=== PATIENT | female | born 1995 | race Caucasian/White ===

== ENCOUNTER 2025-01-09 23:15 | Emergency (ER) | payer OTHER, SELFPAY ==
--- OUTSIDE RECORDS SUMMARY | 2023-09-13 04:15 | XMS_ITS ---
Author Organization [facility] in [place] Address [address] [place] [address] Care Team Providers Care Quick Technician Name Role Phone Eliceo Goodrich CNP Primary Care Provider Kayla Quinn Unavailable [phone] REASON FOR VISIT KS-SECURITY MONITOR pruritic rash REF: Eliceo Goodrich Encounters Encounter Location Date Provider Diagnosis [facility] [address] [place] [address] 09/13/2023 Kayla Hedrick Other urticaria L50. 8 and Postinflammatory hyperpigmentation L81.0 Assessments Encounter Date Diagnosis (ICD Code) Assessment Notes Treatment Notes Treatment Clinical Notes Section Notes 09/13/2023 Other urticaria (ICD-10 - L50.8) 09/13/2023 Postinflammatory hyperpigmentation (ICD-10 - L81.0) Plan Of Treatment No Information Progress Notes * Amanda RADER DDOB:[birth year] (29 yo F)Acc No.[id number]:09/13/2023 UNLOCKED PROGRESS NOTE Progress Note Patient: Jose BASILIOAmanda Kelly Provider: Gladys Hedrick APRN :1995 A ge:28 Y S ex:Female Date:09/13/2023 [facility], [id number] Pcp:Eliceo Goodrich CNP Check In:08:19 AM ESTCheck O ut:09:02 AM EST Subjective: * Chief Complaints: * 1 . KS-SECURITY MONITOR pruritic rash REF: Eliceo Kp. * Medical History: Objective: * Vitals: Assessment: * Assessment: 1. O ther urticaria - L50.8 2 . P ostinflammatory hyperpigmentation - L81.0? Plan: * Treatment: * * Electronic signature of Chelo Hedrick NP on 01/09/2025 at 11:28 PM EDT Sign off status: Pending Visit Status: C HK (Check Out) * Provider: Gladys Hedrick APRN Date: 0 09/13/2023 Generated for Khloe washington/Karolina/Nathan on: 0 01/09/2025 11:28 PM EDT
--- OUTSIDE RECORDS SUMMARY | 2023-10-05 09:00 | XMS_ITS ---
Author Organization [facility] in [place] Address [address] [place] [address] Care Team Providers Care Manager Multicultural Name Role Phone Eliceo Goodrich CNP Primary Care Provider Kayla Quinn Unavailable [phone] REASON FOR VISIT KS-3 week Urticaria follow up Encounters Encounter Location Date Provider Diagnosis [facility] [address] [place] [address] 10/05/2023 Kayla Hedrick Other urticaria L50. 8 and Postinflammatory hyperpigmentation L81.0 Assessments Encounter Date Diagnosis (ICD Code) Assessment Notes Treatment Notes Treatment Clinical Notes Section Notes 10/05/2023 Other urticaria (ICD-10 - L50.8) 10/05/2023 Postinflammatory hyperpigmentation (ICD-10 - L81.0) Plan Of Treatment No Information Progress Notes * Amanda RADER DDOB:[birth year] (29 yo F)Acc No.[id number]:10/05/2023 UNLOCKED PROGRESS NOTE Established Patient: Jose Amanda DAVIDSON Provider: Gladys Hedrick APRN :1995 A ge:28 Y S ex:Female Date:10/05/2023 [facility], [id number] Pcp:Eliceo Goodrich CNP Check In:12:56 PM ESTCheck O ut:01:02 PM EST Subjective: * Chief Complaints: * 1 . KS-3 week Urticaria follow up. * Medical History: Objective: * Vitals: Assessment: * Assessment: 1. O ther urticaria - L50.8 2 . P ostinflammatory hyperpigmentation - L81.0? Plan: * Treatment: * * Electronic signature of Chelo Hedrick NP on 01/09/2025 at 11:28 PM EDT Sign off status: Pending Visit Status: Dinora MAHARAJ (Check Out) * Provider: Gladys Hedrick APRN Date: 10/05/2023 Generated for Khloe washington/Karolina/Nathan on: 01/09/2025 11:28 PM EDT
--- OUTSIDE RECORDS SUMMARY | 2024-10-07 09:00 | XMS_ITS ---
Author Organization [facility] in [place] Address [address] [place] [address] Care Team Providers Care Vice President Planning Name Role Phone Eliceo Goodrich CNP Primary Care Provider Kayla Quinn [phone] REASON FOR VISIT cs - 1 year urticaria Encounters Encounter Location Date Provider Diagnosis [facility] [address] [facility] [place] [address] 10/07/2024 Kayla Hedrick Plan Of Treatment No Information Progress Notes * Amanda RADER DDOB:[birth year] (29 yo F)Acc No.[id number]:10/07/2024 UNLOCKED PROGRESS NOTE Established Patient: Jose DAVIDSON Raeanna Cecy Provider: Gladys Hedrick APRN :1995 A ge:29 Y S ex:Female Date:10/07/2024 Address:[facility] [address], [id number] Pcp:Eliceo Goodrich CNP Subjective: * Chief Complaints: * 1 . Cs - 1 year urticaria. * Medical History: Objective: * Vitals: Assessment: Plan: * Treatment: * * Electronic signature of Chelo Hedrick NP on 01/09/2025 at 11:28 PM EDT Sign off status: Pending Visit Status: C ANCPHONE (Cancelled Phone) * Provider: Gladys Hedrick APRN Date: 0 10/07/2024 Generated for Khloe washington/Karolina/Adamitting on: 0 01/09/2025 11:28 PM EDT
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
[2025-01-09 23:17] VITALS: BP 175/113; PULSE 108; TEMP 37.1; O2SAT 99; BMI 31.0
--- OUTSIDE RECORDS SUMMARY | 2025-01-09 23:29 | XMS_ITS | Encounter Summary ---
Author Organization [employer] Address [id number] [address] [place] [address] Care Team Providers Care Snow Remover Name Role Phone Eliceo Goodrich Nelsy PETERSON-SHEARING MACHINE FEEDER Primary Care Provider + Encounter Details Date Type Department Care Team (Late st Contact Info) Description 12/21/2021 Telephone [facility] [address] [facility] [place] [address] Dorota Alanis DO [address] [place] [address] Social History Tobacco Use Types Packs/Day Years Used Date Smoking Tobacco: Every Day Cigarettes Vaping/E-cigarettes Smokeless Tobacco: Never Alcohol Use Standard Drinks/Week Comments Not Currently 0 (1 standard drink = 0.6 oz pur e alcohol) Childcare Answer Date Recorded Childcare Unknown 12/19/2018 Employment Answer Date Recorded Employment Unknown 12/19/2018 Purpose - Life Answer Date Recorded Purpose and direction in life Unknown Comments No Sex and Gender Information Value Date Recorded Sex Assigned at Female 01/02/2025 10:00 AM EDT Legal Sex Female 11:51 AM EDT Gender Identity Female 01/02/2025 10:00 AM EDT Sexual Orientation Straight 06/23/2024 10 :28 PM EST documented as of this encounter Miscellaneous Notes * Telephone Encounter - Montse Gutierrez - 12/21/2021 9:52 AM EDT Patient called in stating that she is having brown bleeding while on her depo. She is aware that bleeding is a side effect but she is just concerned because she states she has this happen frequently when she receives the shot and wanted to know if it is a cause for concern. Please advise. Thanks. * Telephone Encounter - Dorota Alanis DO - 12/21/2021 9:52 AM EDT Please let patient know that irregular bleeding and occasional spotting, even brownish colored spotting is perfectly normal and to be expected while taking Depo-Provera. Thank you. * Telephone Encounter - Luz Hudson CMA - 12/21/2021 9:52 AM EDT Called and spoke to pt regarding bleeding documented in this encounter Plan of Treatment Upcoming Encounters Date Type Department Care Team ([facility] st Contact Info) Description 02/13/2025 10:30 AM EDT Nurse Injection [facility] [address] [place] [address], [place] [address] Nicolette Johns APRN-CNM [address] [place] [address] 03/20/2025 10:30 AM EDT Nurse Injection [facility] [address] [place] [address] [address] [place] [address] Nicolette Johns APRN-CNM [address] [place] [address] 07/17/2025 10:30 AM EST Nurse Injection [facility] [address] [place] [address], [place] [phone] Nicolette Johns, JIGGER MACHINE OPERATOR-CNM [address] [address] documented as of this encounter Visit Diagnoses Not on filedocumented in this encounter Additional Health Concerns Infection Onset Date Last Indicated Resolved Time COVID-19 Rule-Out 03/13/2023 03/13/2023 03/13/2023 7:38 PM EDT COVID-19 Rule-Out 02/01/2024 02/01/2024 02/02/2024 12:04 AM EDT documented as of this encounter Care Teams Snow Remover Relationship Specialty Start Date End Date Eliceo Goodrich, JIGGER MACHINE OPERATOR-SHEARING MACHINE FEEDER [address] [address] PCP - General Nurse Practitioner 04/04/23 documented as of this encounter
--- OUTSIDE RECORDS SUMMARY | 2025-01-09 23:29 | XMS_ITS | Patient Health Record ---
Author Organization [facility] Address [address] [place] [address] Care Team Providers Care Cleaner Assistant Name Role Phone Eliceo Goodrich CNP Primary Care Provider Kayla Quinn Unavailable [phone] Allergies No Known Allergies Reason For Referral No Information Medications Medication SIG (Take, Route, Frequency, Duration) Notes Start Date End Date Status ibuprofen Active Social History Tobacco Use: Social History Observation Description Date Details (start date - stop date) Current Smoker NA - NA Tobacco Use/Smoking Question Answer Notes Patient is a current every day smoker Plan Of Treatment Pending Test Test Name Order Date BMP w/GFR 10/03/2022 MAGNESIUM 10/03/2022 APTT 10/03/2022 CHLAMYDIA/GC BY PCR 10/03/2022 LIP 06/07/2022 CBC AND AUTO DIFF * 06/07/2022 CBC AND AUTO DIFF * 10/03/2022 PROTIME 10/03/2022 COMPREHENSIVE METABOLIC PANEL 06/07/2022 LIVER PANEL 10/03/2022 TROPONIN-T 10/03/2022 URINALYSIS 10/03/2022 SERUM 10/03/2022 MRI Knee w/o Contrast Right 08/25/2021 LACTATE 10/03/2022 VAGINITIS PANEL PCR 10/03/2022 Insurance Providers Payer Name Payer Address Payer Phone Subscriber Number Group Number Insured Name Patient Relationship to Insured Coverage Start Date Coverage End Date [employer] [place] [employer] [address] [place] [phone] [id number] Amanda Rader Self - patient is the insured Medical (General) History Surgical History Surgery Date(Month/Year)
--- OUTSIDE RECORDS SUMMARY | 2025-01-09 23:29 | XMS_ITS | Encounter Summary ---
Author Organization [employer] Address [id number] [address] [place] [address] Care Team Providers Care Hunter Name Role Phone Eliceo Goodrich Nelsy PETERSON-PAPER CUP HANDLE MACHINE OPERATOR Primary Care Provider + Encounter Details Date Type Department Care Team (Latest Contact Info) Description 01/02/2025 Travel Social History Tobacco Use Types Packs/Day Years Used Date Smoking Tobacco: Former Cigarettes Smokeless Tobacco: Never Comments:Qit smoking and vap ing the end of August 2024. Alcohol Use Standard Drinks/Week Comments Not Currently 0 (1 standard drink = 0.6 oz pur e alcohol) occasional C Utilities Answer Date Recorded In the past 12 months has e electric, gas, oil, or water company threatened to shut off services in your [...] PM EST documented as of this encounter Plan of Treatment Upcoming Encounters Date Type Department Care Team ([facility] st Contact Info) Description 02/13/2025 10:30 AM EDT Nurse Injection [facility] [address] [place] [address] Nicolette Johns APRN-CNM [address] [place] [address] 03/20/2025 10:30 AM EDT Nurse Injection [facility] [address] [facility] [address] [place] [address] Nicolette Johns BIODIESEL DIVISION MANAGER-CNM [address] [place] [address] 07/17/2025 10:30 AM EST Nurse Injection [facility] [address] [facility] [address] [place] [address] Nicolette Johns BIODIESEL DIVISION MANAGER-CNM [address] [place] [address] documented as of this encounter Goals Goal Patient Goal Type Associated Problems Recent Progress Patient-Stated? Author Return home General Yes Kailee Martinez LSW Note: Evaluation of progress towards goal: In progress: Return home. Hopes today. Await stress test results. documented as of this encounter Visit Diagnoses Not on filedocumented in this encounter Additional Health Concerns Assessment Noted Time PHQ-9 Depression Total Score: 13 025 1:32 PM EDT A Body Mass Index follow-up plan has been documented for the patient 01/02/2025 9:52 AM EDT documented as of this encounter Care Teams Hunter Relationship Specialty Start Date End Date Eliceo Goodrich, BIODIESEL DIVISION MANAGER-PAPER CUP HANDLE MACHINE OPERATOR [address] [place] [address] PCP - General Nurse Practitioner 04/04/23 documented as of this encounter
--- OUTSIDE RECORDS SUMMARY | 2025-01-09 23:29 | XMS_ITS | Encounter Summary ---
Author Organization [employer] Address [facility] [place]-[id number] [address] [place] [address] Care Team Providers Care Web Worker Name Role Phone Eliceo Goodrich APRN-CLEAN UP PERSON Primary Care Provider + Reason for Visit * Reason Onset Date Comments Phone Encounter 02/28/2023 Labs Only 02/28/2023 Encounter Details Date Type Department Care Team (Late st Contact Info) Description 02/28/2023 Telephone [facility] Certified Nurse Daycare Assistant - [place] [id number] [address] Kathy Singh CMA Phone Encounter; Labs Only Social History Tobacco Use Types Packs/Day Years Used Date Smoking Tobacco: Every Day Cigarettes Smokeless Tobacco: Never Alcohol Use Standard Drinks/Week Comments Not Currently 0 (1 standard drink = 0.6 oz pur e alcohol) ONCE A MONTH Childcare Answer Date Recorded Childcare Unknown 12/19/2018 [...] encounter Miscellaneous Notes * Telephone Encounter - Kathy Singh CMA - 02/28/2023 11:56 AM EDT Pt called and would like a lab order placed for a UA. She feels like she has a UTI. Frequent urination and burning. * Telephone Encounter - DESHAWN Singleton - 02/28/2023 11:56 AM EDT Went to ER documented in this encounter Plan of Treatment Upcoming Encounters Date Type Department Care Team ([facility] st Contact Info) Description 02/13/2025 10:30 AM EDT Nurse Injection [facility] [address] [facility] 0[address] [place] [address] Nicolette Johns APRN-CNM [address] [place] [address] 03/20/2025 10:30 AM EDT Nurse Injection [facility] [address] [facility] 020 [place] [address] Nicolette Johns APRN-CNM [address] [facility] [address] [place] [address] 07/17/2025 10:30 AM EST Nurse Injection [facility] [address] [facility] 020 [place] [address] Nicolette Johns APRN-CNM [address] [place] [address] documented as of this encounter Visit Diagnoses Not on filedocumented in this encounter Additional Health Concerns Infection Onset Date Last Indicated Resolved Time COVID-19 Rule-Out 03/13/2023 03/13/2023 03/13/2023 7:38 PM EDT COVID-19 Rule-Out 02/01/2024 02/01/2024 02/02/2024 12:04 AM EDT Assessment Noted Time A Body Mass Index follow-up plan has been documented for the patient 08/29/2022 1:08 PM EST documented as of this encounter Care Teams Web Worker Relationship Specialty Start Date End Date Eliceo Goodrich, DEMONSTRATOR SALES-CLEAN UP PERSON [address] [place] [address] PCP - General Nurse Practitioner 04/04/23 documented as of this encounter
--- OUTSIDE RECORDS SUMMARY | 2025-01-09 23:29 | XMS_ITS | Encounter Summary ---
Author Organization [facility] [employer] Address [id number] [address] [place] [address] Care Team Providers Care Tool Trouble Shooter Name Role Phone Eliceo Goodrich Nelsy BUSTILLON-MEDICINAL CHEMIST Primary Care Provider + Encounter Details Date Type Department Care Team (Late st Contact Info) Description 12/26/2023 Orders Only [facility] [address] [place] [phone] Ashley Zarate, SAP PAYROLL CONSULTANT Pruritic rash; Allergic symptoms, subsequent encounter Social History Tobacco Use Types Packs/Day Years Used Date Smoking Tobacco: Former Cigarettes Smokeless Tobacco: Never Alcohol Use Standard Drinks/Week Comments Not Currently 0 (1 standard drink = 0.6 oz pur e alcohol) occasional PHQ-2 Answer Date Recorded Total Score 0 09/11/2023 Childcare Answer Date Recorded Childcare Unknown 12/19/2018 Employment Answer Date Recorded Employment Unknown 12/19/2018 Hunger Screening Answer Date Recorded Within the past 12 months we worried whether our food would run out before we got money to buy more. Never True 11/16/2023 Within the past 12 months th e food we bought just didn't last and we didn't have money to get more. Never True 11/16/2023 Purpose - Life Answer Date Recorded Purpose [...] 02/13/2025 10:30 AM EDT Nurse Injection [facility] [address] [facility] 020 [place] [address] Nicolette Johns APRN-MANNY [address] [facility] [address] [place] [address] 03/20/2025 10:30 AM EDT Nurse Injection [facility] [address] [facility] 0[address] [place] [address] Nicolette Johns APRN-CNElisha [address] [facility] [address] [place] [address] 07/17/2025 10:30 AM EST Nurse Injection [facility] [address] [facility] 0[address] [place] [address] Nicolette Johns APRN-MANNY [address] [facility] [address] [place] [address] documented as of this encounter Procedures Procedure Name Priority Date/Time Associated Diagnosis Comments AMB REFERRAL TO ALLERGY / IMMUNOLOGY Routine 12/21/2023 Pruritic rash Allergic symptoms, subsequent encounter documented in this encounter Results * [facility] [place], [place] (12/21/2023) 12/21/2023 Eliceo Goodrich COTTON PULLER-MEDICINAL CHEMIST OUTPATIENT REFERRAL ORDE RAHUL Final Result MANUALLY TRANSCRIBED RESULTS documented in this encounter Visit Diagnoses Diagnosis Pruritic rash Allergic symptoms, subsequent encounter documented in this encounter Additional Health Concerns Infection Onset Date Last Indicated Resolved Time COVID-19 Rule-Out 02/01/2024 02/01/2024 02/02/2024 12:04 AM EDT Assessment Noted Time PHQ-9 Depression Total Score: 0 09/11/19 1:19 PM EST A Body Mass Index follow-up plan has been documented for the patient 11/16/2023 1:53 PM EDT documented as of this encounter Care Teams Tool Trouble Shooter Relationship Specialty Start Date End Date Eliceo Goodrich, COTTON PULLER-MEDICINAL CHEMIST [address] [place] [address] PCP - General Nurse Practitioner 04/04/23 documented as of this encounter
--- OUTSIDE RECORDS SUMMARY | 2025-01-09 23:29 | XMS_ITS | Encounter Summary ---
Author Organization [employer] Address [id number] [address] [place] [address] Care Team Providers Care Wooden Tank Erector Name Role Phone Eliceo Goodrich KRISTEN-PHYSICAL EDUCATION TEACHER Primary Care Provider + Reason for Visit * Reason Onset Date Comments Consult 06/24/2024 chest pain and p ossible positive stress test today Encounter Details Date Type Department Care Team (Late st Contact Info) Description 06/24/2024 Telephone [facility] [address] [place] [address] Katie Beasley Consult (chest pain and possible positive stress test today) Social History Tobacco Use Types Packs/Day Years Used Date Smoking Tobacco: Every Day Cigarettes Smokeless Tobacco: Never Alcohol Use Standard Drinks/Week Comments Not Currently 0 (1 standard drink = 0.6 oz pur e alcohol) occasional Group Therapy [facility] Utilities Answer Date Recorded In the past 12 months has [employer], gas, oil, or water [employer] threatened to shut off services in your home? No 06/23/2024 PHQ-2 Answer Date Recorded Total Score 0 09/11/2023 PRAPARE - Transportation Answer Date Re corded [...] got money to buy more. Never True 06/23/2024 Within the past 12 months th e food we bought just didn't last and we didn't have money to get more. Never True 06/23/2024 Purpose - Life Answer Date Recorded Purpose and direction in life Unknown Comments No Sex and Gender Information Value Date Recorded Sex Assigned at Female 01/02/2025 10:00 AM EDT Legal Sex Female 11:51 AM EDT Gender Identity Female 01/02/2025 10:00 AM EDT Sexual Orientation Straight 06/23/2024 10 :28 PM EST documented as of this encounter Miscellaneous Notes * Telephone Encounter - Katie Beasley - 06/24/2024 11:16 PM EST Contract: jay Moreno calling for consult for chest pain and possible positive stress test today. Room 254. No need for a call back at this time. Sent secure chat to Frederick Steven. documented in this encounter Plan of Treatment Upcoming Encounters Date Type Department Care Team (Late st Contact Info) Description 02/13/2025 10:30 AM EDT Nurse Injection [facility] [address] [facility] 020 [place] [address] Nicolette Johns APRN-CNM [address] [facility] [address] [place] [address] 03/20/2025 10:30 AM EDT Nurse Injection [facility] [address] [facility] 020 [place] [address] Nicolette Johns APRN-CNM [address] [facility] [address] [place] [address] 07/17/2025 10:30 AM EST Nurse Injection [facility] [address] [place] [address] 020 [place] [address] Nicolette Johns APRN-CNM [address] [facility] [address] [place] [address] documented as of this encounter Goals Goal [...] Time PHQ-9 Depression Total Score: 0 09/11/19 24 1:19 PM EST A Body Mass Index follow-up plan has been documented for the patient 11/16/2023 1:53 PM EDT documented as of this encounter Care Teams Wooden Tank Erector Relationship Specialty Start Date End Date Eliceo Goodrich, TOW MOTOR MECHANIC-PHYSICAL EDUCATION TEACHER [address] [place] [address] [address] [place] [address] PCP - General Nurse Practitioner 04/04/23 documented as of this encounter
--- OUTSIDE RECORDS SUMMARY | 2025-01-09 23:29 | XMS_ITS | Clinical Summary ---
Author Organization [facility] Address [id number] [place] [address] Care Team Providers Care Pigment Supplier Name Role Phone KpEliceo Nelsy [employer] Primary Care Provider + Allergies Active Allergy Reactions Criticality Noted Date Comments Oxycodone-Acetaminophen Anaphylaxis High 03/07/2019 Hydrocodone-Acetaminophen Anaphylaxis High 9 Medications cholecalciferol (VITAMIN D3) 50,000 units capsuleIndicatio ns:Vitamin D deficiency Take 1 capsule (50,000 Units total) by mouth once a week. 12 capsule 023 Active calcium carbonate-vitami n D3 (CALCIUM 600 + D,3,) 600 mg(1,500mg) -400 units per tabletIndication s:Depo-Provera contraceptive status Take 1 tablet by mouth in the morning and 1 tablet before bedtime. 60 tablet 12 024 Active EPINEPHrine (EPIPEN) 0.3 mg/0.3 mL auto-injector 024 Active buPROPion XL (WELLBUTRIN XL) 150 mg 24 hr tabletIndication s:Encounter for smoking cessation counseling Take 1 tablet (150 mg total) by mouth every morning. 30 tablet 11 024 Active ibuprofen (MOTRIN) 800 mg tablet Take 1 tablet (800 mg total) by mouth every 8 (eight) hours as needed for pain. 30 tablet 025 Active clindamycin-chuy oyl peroxide (BENZACLIN) gelIndications:O pen comedone Apply 1 Application topically in the morning and 1 Application before bedtime. 25 g 2 Active semaglutide, weight loss, (WEGOVY) 0.25 mg/0.5 mL pen injectorIndicati ons:Prediabetes, BMI 32.0-32.9,adult Inject 0.5 mL (0.25 mg total) under the skin every 7 days for 4 doses. 2 mL 025 2024 Active atorvastatin (LIPITOR) 40 mg tablet Take 1 tablet (40 mg total) by mouth nightly. 30 tablet 024 2024 Discontinued metroNIDAZOLE (FLAGYL) 500 mg tablet Take 1 tablet (500 mg total) by mouth in the morning and 1 tablet (500 mg total) before bedtime. 025 2024 Discontinued phentermine (ADIPEX-P) 37.5 mg tabletIndication s:Encounter for weight loss counseling,Obesi ty with body mass index (BMI) of 30.0 to 39.9 Take 1 tablet (37.5 mg total) by mouth every morning before breakfast. 30 tablet 025 2024 Discontinued Immunization, In Clinic, Inject 0.5 mL into the appropriate muscle once for 1 dose. human papillomav vac,9-glen(PF) 0.5 mL Sign this order to satisfy the OSBOP Positive ID requirements for immunization orders. 2024 Hospital, Clinic, or Other Facility Administered Medication Ordered Dose Route Frequency Start Date End Date Status medroxyPROGESTERone (DEPO-PROVERA) injection 150 mgIndications:Encounter for surveillance of injectable contraceptive 150 mg IM Once 01/02/2025 01/02/2025 Ended Active Problems Problem Noted Date Diagnosed Date Family hx-breast malignancy 01/02/2025 Family hx of ovarian malignancy 01/02/2025 BMI 32.0-32.9,adult 01/02/2025 Class 1 obesity due to exces s calories without serious comorbidity with body mass index (BMI) of 33.0 to 33.9 in adult 06/24/2024 Prediabetes 06/24/2024 Nicotine use 06/24/2024 Chest pain, unspecified type 06/23/2024 Elevated BP without diagnosis of hypertension Other chest pain 02/14/2024 Abnormal US (ultrasound) of abdomen 05/08/2023 Recurrent infections 05/02/2023 Overview (05/02/2023): 05/02/23 BV- plan prolonged Tx with metrogel Pelvic pain 05/01/2023 RLQ abdominal pain 05/01/2023 ADHD (attention deficit hyperactivity disorder) 04/04/2023 Anxiety 04/04/2023 Depression 04/04/2023 HPV (human papilloma virus) infection 04/04/2023 PTSD (post-traumatic stress disorder) 04/04/2023 Urogenital trichomoniasis 04/04/2023 Encounter for management and injection of depo-P rovera 02/09/2023 PID (acute pelvic inflammatory disease) 10/21/19 ASCUS of cervix with negative high risk HPV 08/11 Overview (09/05/2022): 09/05/22: ASCCP recommends repeat pap in 3 years (2025). Abnormal uterine bleeding (AUB) 10/06/2021 Encounters Date Type Department Care Team Description 01/02/2025 8:30 AM EDT Office Visit [facility] [address] [place] [phone] Nicolette Johns, KRISTEN-MANNY Well woman exam with routine gynecological exam (Primary Dx); Encounter for surveillance of injectable contraceptive; Need for HPV vaccination; Atypical squamous cells of undetermined significance (ASCUS) on Papanicolaou smear of cervix; Prediabetes; Abnormal uterine bleeding (AUB); BMI 32.0-32.9,adult; Screen for STD (sexually transmitted disease); Low vitamin D level; Family hx-breast malignancy; Family hx of ovarian malignancy 01/02/2025 Travel from Last 3 Months Immunizations Immunization Administration Dates Next Due DTP 12/28/1995,11/24/1994,1993 DTaP, Unspecified 02/28/1997 HPV9 01/02/2025 Hep B, Adolescent or Pediatric 02/28/1997,1995,1993 Hep B, Unspecified 01/17/2001 HiB 12/28/1995,1993 Influenza, Im Trivalent Preservative 11/28/2011 Influenza, Injectable, quadr ivalent (PF) 03/28/2018 MMR 03/15/2012,01/17/2001,12/28/1995 OPV 02/28/1997, 6,11/24/1994,09/27 Pneumococcal Polysaccharide 03/23/2018 Tdap 02/02/2018,03/03/2015,03/15/2012 Family History Medical History Relation Name Comments Hypertension Father Breast cancer Maternal Grandmother Hypertension Mother Ovarian cancer Mother Colon cancer Neg Hx Uterine cancer Neg Hx Relation Name Status Comments Father Alive Maternal Grandmother Mother Alive Social History Tobacco Use Types Packs/Day Years Used Date Smoking Tobacco: Former Cigarettes Smokeless Tobacco: Never Tobacco Cessation:Counseling Given: Not Answered Comments:Qit smoking and vaping the end of August 2024. Alcohol Use Standard Drinks/Week Comments Not Currently 0 (1 standard drink = 0.6 oz pur e alcohol) occasional Snapsort Utilities Answer Date Recorded In the past 12 months has th e electric, gas, oil, or water company [...] Orientation Straight 06/23/2024 10 :28 PM EST Last Filed Vital Signs Vital Sign Reading Time Taken Comments Blood Pressure 118/82 01/02/2025 8:42 AM EDT Pulse 88 09/27/2024 1:26 PM EDT Temperature 36.7 C (98 F) 09/27/2024 1:26 PM EDT Respiratory Rate 18 09/21/2024 12:2 8 AM EDT Oxygen Saturation 97% 09/27/2024 1: 26 PM EDT RA Inhaled Oxygen Concentration - - Weight 73.8 kg (162 lb 12.8 oz) 01/02/2025 8:42 AM EDT Height 149.9 cm (4' 11.02 ) 01/02/2025 8:42 AM E DT Body Mass Index 32.86 01/02/2025 8:42 AM EDT Plan of Treatment Upcoming Encounters Date Type Department Care Team (Late st Contact Info) Description 02/13/2025 10:30 AM EDT Nurse Injection [facility] [address] [place] [phone] Nicolette Johns APRN-CNM [address] [address] 03/20/2025 10:30 AM EDT Nurse Injection [facility] [address] [place] [phone] Nicolette Johns APRN-CNM [address] [address] 07/17/2025 10:30 AM EST Nurse Injection [facility] [address] [place] [phone] Marylu Johnsher Graham, [employer] HAND-CNM [address] [place] [address] Health Maintenance Due Date Last Done Comments COVID-19 Vaccine (2 2023-2 5 season) 2024 06/07/2021 Influenza Vaccine 03/10/2025 03/28/2018, 11/28/2011 Pap Smear 08/29/2025 08/29/2022, 08/29/2022 Depression Screening 09/27/2025 09/27/2024 Adult BMI Follow Up Plan 01/02/2026 01/02/2025 Adult BMI Screening 01/02/2026 01/02/2025 Tobacco Screening 01/02/2026 01/02/2025 DTaP,Tdap and Td Vaccines (8 - Td or Tdap) 02/03/2028 02/02/2018, 03/03/2015, 03/15/2012, Additional history exists Goals Goal Patient Goal Type Associated Problems Recent Progress Patient-Stated? Author Return home General Yes Kailee Martinez LSW Note: Evaluation of progress towards goal: In progress: Return home. Hopes today. Await stress test results. Medical Devices Not on file Procedures Procedure Name Priority Date/Time Associated Diagnosis Comments CHLAMYDIA/GC BY PCR SANDRA SWAB Routine 01/02/2025 11:14 AM EDT Screen for STD (sexually transmitted disease) TRICHOMONAS BY PCR Routine 01/02/2025 9: 47 AM EDT Screen for STD (sexually transmitted disease) HIGH RISK HPV W/CARMELO Routine 08/29/2022 4:56 AM EST Encounter for screening for malignant neoplasm of cervix from Last 3 Months or Most Recently Relevant to Health Maintenance Results * Chlamydia/GC by PCR Sandra Swab (01/02/2025 11:14 AM EDT) CHLAMYDIA DNA(PCR) Negative Negative 01/03/2025 12:05 PM EDT [facility] Comment:Chlamydia trachomati s not detected by nucleic acid amplification. This does not exclude the possibility of infection because results are dependent on adequate specimen collection. GONORRHOEAE DNA(PCR) Negative Negative 01/03/2025 12:05 PM EDT [facility] Comment:Neisseria gonorrhoea e not detected by nucleic acid amplification. This does not exclude the possibility of infection because results are dependent on adequate specimen collection. Swab Endocervical structure / Unknown 01/02/2025 11:14 AM EDT 01/02/2025 11:14 AM EDT Nicolette Johns APRN-MANNY MICROBIOLOGY - GENERAL ORDERABLES Final Result [facility] [address] [place] [address], [place] [phone] * Trichomonas by PCR (01/02/2025 9:47 AM EDT) TRICHOMONAS PCR Not Detected Not Detected 01/02/2025 9:49 PM EDT [facility] Comment: Trichomonas vaginalis not detected. Assay methodology is nucleic acid amplification by real-time PCR for detection of Trichomonas vaginalis DNA performed on [employer] GeneXpert Instrument System. Swab Endocervical structure / Unknown 01/02/2025 9:47 AM EDT 01/02/2025 9:47 AM EDT Nicolette Johns APRNPEMISCOT MEMORIAL HEALTH SYSTEMSElisha MICROBIOLOGY - GENERAL ORDERABLES Final Result [facility] [address] [place] [address], [place] [phone] * High risk HPV w/carmelo (08/29/2022 4:56 AM EST) Hpv specimen type ThinPrep 08/30/2022 4:56 AM EST [facility] Hpv 16 Negative Negative^N egative 08/31/2022 5:59 AM EST [facility] Hpv 18 Negative Negative^N egative 08/31/2022 5:59 AM EST [facility] Other high risk hpv Negative Negative^N egative 08/31/2022 5:59 AM EST [facility] Comment: HPV types 31,33,35,39,45,52,56,58,59,66 and 68 DNA were undetectable. THINP 08/29/2022 4:56 AM EST 08/30/2022 4:57 AM EST us Nicolette Johns [employer] HAND-CNM LAB BLOOD ORDERABLES F inal Result [facility] [address] [place] [address] [facility] [address], [address] [place] [address] from Last 3 Months or Most Recently Relevant to Health Maintenance Insurance [place] [employer] Advance Directives * Full Code (Latest Code Status on File) Date Activated Date Inactivated Comments 06/23/2024 9:31 PM 06/25/2024 4:59 PM Care Teams Pigment Supplier Relationship Specialty Start Date End Date Eliceo Goodrich, [employer]ER [address] [place] [address] [address] [place] [phone] PCP - General Nurse Practitioner 04/04/23
--- NOTE | 2025-01-09 23:56 | ED_ITS ---
HPI HPI - General Adult General Stated complaint: LOWER EXTREMITY PAIN Time Seen by Provider: 01/09/25 23:27 Source: patient Mode of arrival: walk-in Limitations: physical limitation Limitations comment: pain to the left leg that staRTED THIS MORNING. any time something touches the leg it sends pinpricks up her leg History of Present Illness HPI narrative: This 29-year-old female was brought to the emergency department by her mother for evaluation of left upper leg pain. Symptoms started today. She has severe dysesthesia to the entire left upper leg. The patient states she cannot even allow anything to touch it including cold air. She has used Tylenol and Motrin. She has no calf pain or swelling. She denies any associated back pain. She has not had any fever. There is no redness or swelling in this area. Related Data Home Medications ?Medication ?Instructions ?Recorded ?Confirmed Ozempic 01/09/25 Wellbutrin XL 01/09/25 atorvastatin 40 mg tablet mg 01/09/25 Allergies Allergy/AdvReac Type Severity Reaction Status Date / Time acetaminophen (From Vicodin) Allergy Mild Hives Verified 01/09/25 23:26 hydrocodone (From Vicodin) Allergy Mild Hives Verified 01/09/25 23:26 oxycodone (From Percocet) Allergy Mild Hives Verified 01/09/25 23:26 Opioid HPI Opioid Management Most Recent Opioid Data: Last Pain Scale 10 01/09/25, 23:17 Review of Systems ROS Status of ROS 10 or more systems reviewed and unremark able except as noted in history and below PFSH PFSH Social History Little interest or pleasure in doing things: not at all Feeling down, depressed, or hopeless: not at all Exam Narrative Exam Narrative: Vital signs and Nursing Notes reviewed: Patient is afebrile, she is tachycardic with a pulse of 108 and blood pressure is elevated at 175/113, she has not hypoxic with pulse ox of 99% on room air General: Awake, alert, oriented, tearful uncomfortable appearing female, no respiratory distress HEENT: Normocephalic atraumatic, mucous membranes are moist and pink, eyes are clear, normal conjunctiva, vision is grossly intact, posterior pharynx is normal in appearance. Chest: Lungs are clear to auscultation with good air entry, there is no wheezing rhonchi or rales appreciated no accessory muscle use, patient is speaking in complete sentences-no chest wall tenderness to palpation CVS: Regular rate and rhythm S1-S2, no murmurs rubs or gallops, pulses are brisk and equal bilaterally ABD: Obese, soft, nondistended, nontender, no rebound guarding or rigidity, bowel sounds are normal, no pulsatile masses appreciated, femoral pulses brisk Extremities: Patient is wearing shorts. Legs were compared [id number]. There is no discrepancy in the size of the patient's legs. There is no redness, bruising, notable swelling or other abnormality noted however the patient has dysesthesia to the left upper leg in a circumferential fashion. Her femoral, dorsalis pedis and posterior tibialis pulses are brisk. There is no calf swelling or tenderness. Skin: Normal in appearance without rash,pallor, petechiae or purpura Neuro: No focal deficits Constitutional Vital Signs, click to edit/add: Last Vital Signs Temp 98.8 F 01/09/25 23:17 Pulse 108 H 01/09/25 23:17 Resp 01/09/25 23:17 BP 175/113 H 01/09/25 23:17 Pulse Ox 99 01/09/25 23:17 O2 Del Method Room Air 01/09/25 23:17 Course Vital Signs Vital signs: Vital Signs Temperature 98.8 F 01/09/25 23:17 Pulse Rate 108 H 01/09/25 23:17 Respiratory Rate 20 01/09/25 23:17 Blood Pressure 175/113 H 01/09/25 23:17 Pulse Oximetry 99 01/09/25 23:17 Oxygen Delivery Method Room Air 01/09/25 23:17 Temperature 98.8 F 01/09/25 23:17 Pulse Rate 108 H 01/09/25 23:17 Respiratory Rate 01/09/25 23:17 Blood Pressure 175/113 H 01/09/25 23:17 Pulse Oximetry 99 01/09/25 23:17 Oxygen Delivery Method Room Air 01/09/25 23:17 Medical Decision Making MDM Narrative Medical decision making narrative: This 29-year-old female presents for evaluation of severe pain in her left leg specifically her left upper leg where she has exquisite sensation to even light touch or cold air on her leg. She denies any injury. There is no redness swelling or notable abnormality in the extremity. Her pulses are normal. She denies any injury. The mother adds to the conversation that when the patient is sleeping she sleeps with her left leg flexed at the hip and knee. This may be causing some degree of neuropathy or neuralgia. She is hemodynamically stable although her blood pressure was elevated upon arrival at 175/113. An IV was placed and routine labs are ordered to rule out an electrolyte abnormality contributing to her symptoms. She has normal white count and hemoglobin. Her CRP is mildly elevated. D-dimer is normal. Electrolytes are normal. She was medicated with Toradol and on reevaluation she states she is feeling better. She is now able to lie on her left side with her right leg flexed and a sheet over the leg. X-ray of the left femur was reviewed by myself and does not show any fracture dislocation or other abnormal findings. She will be given a dose of Solu-Medrol prior to discharge and discharged home with a prescription for Medrol Dosepak and prescription for ketorolac. Lab Data Lab results reviewed: Yes I reviewed the patient's lab results Labs: Lab Results 01/10/25 Range/Units 00:30 WBC 10.2 (4.0-11.0) 10^3/uL RBC 4.94 (4.20-5.40) 10^6/uL Hgb 14.6 (12.0-16.0) g/dL Hct 42.3 (36.0-48.0) % MCV 85.6 (81.0-99.0) fL MCH 29.6 (26.7-34.0) pg MCHC 34.5 (29.9-35.2) g/dL RDW 12.7 (11.0-15.0) % Plt Count 256 (150-450) 10^3/uL MPV 10.5 (9.5-13.5) fL Neut % (Auto) 54.4 (43.0-75.0) % Lymph % (Auto) 33.7 (20.5-60.0) % [place] % (Auto) 9.4 (1.7-12.0) % Eos % (Auto) 1.8 (0.9-7.0) % Baso % (Auto) 0.5 (0.2-2.0) % Neut # (Auto) 5.6 (1.4-6.5) 10^3/uL Lymph # (Auto) 3.4 (1.2-3.8) 10^3/uL [place] # (Auto) 1.0 H (0.3-0.8) 10^3/uL Eos # (Auto) 0.2 (0.0-0.7) 10^3/uL Baso # (Auto) 0.1 (0.0-0.1) 10^3/uL Abs Immat Gran (auto) 0.02 (0.00-0.03) 10^3/uL Imm/Tot Granulo (auto) 0.2 (0.0-0.5) % ESR 24 H (<=20) mm/hr D-Dimer 0.29 (<=0.59) mg/L FEU Sodium 141 (136-145) mmol/L Potassium 3.7 (3.5-5.1) mmol/L Chloride 106 (98-107) mmol/L Carbon Dioxide 25.4 (21.0-32.0) mmol/L Anion Gap 13.3 BUN 14.0 (7.0-18.0) mg/dL Creatinine 0.49 L (0.55-1.02) mg/dL Est GFR ( Amer) >60 (>=60 mL/min/1.73m^2) Est GFR (Non-Af Amer) >60 (>=60 mL/min/1.73m^2) BUN/Creatinine Ratio 28.6 Glucose 98 (74-106) mg/dL Calcium 9.3 (8.5-10.1) mg/dL Total Bilirubin 0.2 (0.2-1.0) mg/dL AST 12 L (15-37) U/L ALT 28 (14-59) U/L Alkaline Phosphatase 96 (46-116) U/L C-Reactive Protein <0.50 (<=0.50) mg/dL Total Protein 7.5 (6.4-8.2) g/dL Albumin 3.7 (3.4-5.0) g/dL Globulin 3.8 g/dL Albumin/Globulin Ratio 1.0 Discharge Plan Discharge Clinical Impression: Neuralgia Patient Disposition: Home, Self-Care Time of Disposition Decision: 01:32 Condition: Good Mode of Transportation: Private Vehicle Prescriptions / Home Meds: No Action atorvastatin 40 mg tablet Wellbutrin XL Ozempic Print Language: Beninese Instructions: Peripheral Neuropathy (ED), Paresthesia (ED) Referrals: Physician,Non-Staff, MD [Primary Care Provider] - 1 week
[2025-01-10] MEDS: KETOROLAC TROMETHAMINE 60 MG/2 ML VIAL IM (00:26)
[2025-01-10 00:38] LABS: Hematocrit 42.3 % (36.0-48.0); Hemoglobin 14.6 g/dL (12.0-16.0); Immature Granulocytes Abs Auto 0.02 10^3/uL (0.00-0.03); Immature Granulocytes Pct Auto 0.2 % (0.0-0.5); Lymphocytes Absolute Auto 3.4 10^3/uL (1.2-3.8); Mean Corpuscular HGB Conc 34.5 g/dL (29.9-35.2); Mean Corpuscular Hemoglobin 29.6 pg (26.7-34.0); Mean Corpuscular Volume 85.6 fL (81.0-99.0); Platelet Count 256 10^3/uL (150-450); Red Blood Count 4.94 10^6/uL (4.20-5.40); White Blood Count 10.2 10^3/uL (4.0-11.0)
[2025-01-10 00:58] LABS: Alanine Aminotransferase 28 U/L (14-59); Albumin Globulin Ratio 1.0; Albumin Level 3.7 g/dL (3.4-5.0); Alkaline Phosphatase 96 U/L (46-116); Anion Gap 13.3; Aspartate Amino Transferase 12 U/L (15-37); Blood Urea Nitrogen 14.0 mg/dL (7.0-18.0); Calcium 9.3 mg/dL (8.5-10.1); Carbon Dioxide 25.4 mmol/L (21.0-32.0); Chloride 106 mmol/L (98-107); Estimated GFR (African America >60 (>=60 mL/min/1.73m^2); Estimated GFR (Non-African Ame >60 (>=60 mL/min/1.73m^2); Globulin 3.8 g/dL; Glucose 98 mg/dL (74-106); Potassium 3.7 mmol/L (3.5-5.1); Sodium 141 mmol/L (136-145); Total Protein 7.5 g/dL (6.4-8.2)
[2025-01-10] MEDS: METHYLPREDNISOLONE SOD SUCC PF 125 MG/2 ML VIAL IVP (01:31)
[2025-01-10 01:49] VITALS: BP 146/94; PULSE 72; O2SAT 100
== END 2025-01-10 01:51 | disposition home or self-care (01) ==
PROVIDERS: Emergency Provider Emergency Medicine
DX: M79.2 Neuralgia and neuritis, unspecified (principal); R20.8 Other disturbances of skin sensation
CPT/HCPCS: 36415; 73552; 80053; 85025; 85378; 85652; 86140; 96372; 96374; 99284; J1885; J2919